=== PATIENT | female | born 1990 | race Caucasian/White ===

== ENCOUNTER 2018-02-26 06:40 | Inpatient (IN) | payer BC ==
[2018-02-26] MEDS ORDERED: Oxytocin 30 UNIT 30 UNITS/500 ML BAG IV ONE (07:18)
[2018-02-26] MEDS ORDERED: OXYTOCIN/0.9 % NS 20 UNIT/1,000 ML BAG IV SCH ×2 (07:30→14:31)
[2018-02-26] MEDS: Lactated Ringer's 1,000 ML IV ONE ×2 (07:30→08:00)
[2018-02-26] MEDS ORDERED: ceFAZolin 2 GM in Sodium Chloride 0.9% 100 ML IVPB ONE (08:01)
[2018-02-26 08:18] LABS: BASO % 0.2 % (0.0-2.0); EOS # 0.1 K/uL (0.0-0.7); EOS % 0.7 % (0.0-4.0); HEMOGLOBIN 12.7 g/dL (12.0-16.0); LYMPH # 2.1 K/uL (1.0-4.3); LYMPH % 25.9 % (20.0-40.0); MEAN CELL VOLUME 93.8 fl (81.0-99.0); MEAN CORPUSCULAR HEMOGLOBIN 31.7 pg (27.0-31.0); MEAN CORPUSCULAR HGB CONC 33.7 g/dL (33.0-37.0); MEAN PLATELET VOLUME 9.7 fl (7.2-11.7); MONO # 0.6 K/uL (0.0-0.8); MONO % 8.2 % (0.0-10.0); NEUT # 5.1 K/uL (1.8-7.0); NRBC % 0.2 % (0.0-0.0); RBC 4.01 Mil/uL (3.80-5.20); RED CELL DISTRIBUTION WIDTH 14.1 % (11.5-14.5); WHITE BLOOD COUNT 7.9 K/uL (4.8-10.8)
[2018-02-26] MEDS ORDERED: ePHEDrine 50 mg/ml Inj ONE (08:43)
[2018-02-26] MEDS ORDERED: EPINEPHrine 1 mg/ml (1:1000) Inj ONE (08:44)
[2018-02-26] MEDS ORDERED: Morphine 1 mg/ml preservative-free Inj(Duramorph) ONE (08:44)
[2018-02-26] MEDS ORDERED: ceFAZolin IV 2 gm in Dextrose 2 GM/50 ML BAG IVPB STA (08:51)
[2018-02-26] MEDS ORDERED: ceFAZolin 2 GM in Sodium Chloride 0.9% 100 ML IVPB SCH (09:45)
[2018-02-26] MEDS ORDERED: Oxycodone/Acetaminophen 5/325 mg Tab PO PRN ×3 (11:41→14:31)
--- NOTE | 2018-02-26 12:19 | OBHP ---
Datetime: 02/26/2018 07:30 IP Adm Impression: Term, intrauterine IP Admit Plan: Admit to unit; Initiate Section protocol Admit Comment, IP Provider: 27 y/o female at 40.4wk GA admitted to LD for primary du e to breech presentation. Patient does not have any medical problems. She denies CXTs, VB, VFL. Patie nt denies CP, SOB, N/V, headache, visual changes. OB: [facility] Pmhx: denies HomeRx: vitamins and iron supplements Famhx: maternal grandmother w/ HTN SurgHx: denies SocialHx: denies toxic habits Allergies: NKDA ROS negative except per HPI Physical Exam: Gen: sitting up comfortably in bed Heart: S1 S2 present, RRR Lungs: normal resp effort, clear to auscultation bilaterally Abd: Gravid, normal BS, soft, non-tender Extremities: no swelling/erythema/tenderness Assessment and Plan: 27 y/o female at 40.4wk GA admitted to LD for primary due to breech presentation GBS+, RPR neg, HBsAg neg, Rubella non-immune, GC/C negative Admit patient to unit [place] and NST monitoring CBC/ Type and screen Rapid HIV LR 1L IV bouls x2 NPO Anesthesiology consulted SCDs for DVT prophylaxis Case discussed w/ attending, Dr. Isauro Boyce, pgyi Patient was seen with the resident I agree with the note Pelvic Type - PN: Not Done Extremities - PN: Normal Abdomen - PN: Normal Back - PN: Not Done Breast - PN: Not Done Lungs - PN: Normal Heart - PN: Normal Thyroid - PN: Not Done Neurologic - PN: Not Done HEENT - PN: Not Done General - PN: Normal Presentation-Admit: Breech Contraction Comments Provider: none Gestation - Est Wks by US: 40.4 IP Hx Assessment: The History has been Reviewed and is Current EGA AdmitDate IP: 39.3 Vital Signs Provider: Reviewed; Within Normal Limits IP Indication for Induction: Not Applicable IP Chief Complaint: Scheduled Section NICHD Decel Fetus A IP Provider: None Genitourinary Exam: Not Done DTRs - PN: Not Done
--- NOTE | 2018-02-26 12:37 | OBDS ---
DELIVERY PERSONNEL Delivery Doctor: Mercy Marie MD Scrub Nurse: Denice Frye Fitness Assistant: Sosa Taylor RN Anesthesiologist: Dr. Boyle MATERNAL INFORMATION Delivery Anesthesia: Spinal Medications in Delivery: ancef 2grams and Pitocin Estimated Blood Loss (ml): 800 EBL Placenta Cultured: No Maternal Complications: None RN Comments: Baby breeched confirmed on ultrasound Provider Comments: Patient was delivered by primary section via low flap transverse incisio n patient tolerated procedure well see operative report LABOR SUMMARY EDC: 03/02/2018 00:00 No. Babies in Womb: 1 Attempted: No Labor Anesthesia: Intrathecal LABOR INFORMATION Reason for Induction: Not Applicable Oxytocin: N/A Group B Beta Strep: Positive Antibiotics # of Doses: Ancef 2 grams Antibiotics Time of Last Dose: 1030a Steroids Given: None Reason Steroids Not Administered: Not Applicable MEMBRANES Membranes Rupture Method: Artificial Rupture of Membranes: 02/26/2018 10:48 Length of Rupture (hrs): 0.02 Amniotic Fluid Color: Clear Amniotic Fluid Amount: Moderate Amniotic Fluid Odor: None STAGES OF LABOR Stage 3 hrs: 0 Stage 3 min: 0 CSECTION DELIVERY Primary Indication: Breech Presentation Secondary Indication: primary c section CSection Urgency: Elective CSection Incidence: Primary Labor: No Labor Elective: Elective CSection Incision: Lower Uterine Transverse BABY A INFORMATION Infant Delivery Date/Time: 02/26/2018 10:49 Method of Delivery: Born in Route : No : N/A Forceps: N/A Vacuum Extraction: N/A Shoulder Dystocia : No SHOULDER DYSTOCIA BABY A Delivery Date/Time: 02/26/2018 10:49 PRESENTATION/POSITION BABY A Presentation: Breech Cephalic Presentation: N/A Breech Presentation: Madan PLACENTA INFORMATION BABY A Placenta Delivery Time : 02/26/2018 10:49 Placenta Method of Delivery: Manual Removal Placenta Status: Delivered SCORES BABY A Heart Rate 1 min: >100 bpm Resp Effort 1 min: Good Cry Reflex Irritability 1 min: Cough or Sneeze or Pulls Away Muscle Tone 1 min: Active Motion Color 1 min: Body Twilight, Extremities Blue Resuscitation Effort 1 min: N/A SCORE 1 MIN: 9 Heart Rate 5 min: >100 bpm Resp Effort 5 min: Good Cry Reflex Irritability 5 min: Cough or Sneeze or Pulls Away Muscle Tone 5 min: Active Motion Color 5 min: Body Twilight, Extremities Blue Resuscitation Effort 5 min: N/A SCORE 5 MIN: 9 INFANT INFORMATION BABY A Gestational Age at Delivery: 39.3 Gestational Status: Term Outcome : Liveborn Condition : Stable Sex: Female IDENTIFICATION/MEDS BABY A ID Band Number: [id number] ID Band Location: Left Leg; Left Arm WEIGHT/LENGTH BABY A Birthweight (gms): 3150 Weight (lb): 6 Weight (oz): 15 CORD INFORMATION BABY A No. Cord Vessels: 3 Nuchal Cord : N/A Cord Blood Taken: Yes Suction: Mouth ASSESSMENT BABY A Complications: None Physical Findings at Delivery: Within Normal Limits Respirations: Appears Normal Thiokol Operator/ALS Called : No Infant Care By: DR Vázquez and Namrata Hebert RN nursery RN Transferred To: Remains with Mother
[2018-02-26] MEDS ORDERED: Simethicone 80 mg Chewtab PO SCH (16:00)
[2018-02-26] MEDS: Simethicone 80 mg Chewtab PO SCH ×2 (16:13→22:07)
[2018-02-27] MEDS: Simethicone 80 mg Chewtab PO SCH ×4 (04:00→22:09)
[2018-02-27 06:03] LABS: HEMOGLOBIN 10.5 g/dL (12.0-16.0); MEAN CELL VOLUME 92.6 fl (81.0-99.0); MEAN CORPUSCULAR HEMOGLOBIN 31.9 pg (27.0-31.0); MEAN CORPUSCULAR HGB CONC 34.4 g/dL (33.0-37.0); RBC 3.3 Mil/uL (3.80-5.20); RED CELL DISTRIBUTION WIDTH 13.8 % (11.5-14.5); WHITE BLOOD COUNT 9.8 K/uL (4.8-10.8)
--- NOTE | 2018-02-27 08:08 | OP ---
PROCEDURE DATE: 02/26/2018 PREOPERATIVE DIAGNOSIS: Breech presentation. POSTOPERATIVE DIAGNOSIS: Breech presentation. OPERATION PERFORMED: Primary low-flat transverse section via Pfannenstiel skin incision. SURGEON: Mary Marie MD BATTERY LOADER: Dr. Negin Lemus. She was helpful in creating exposure, obtaining hemostasis, delivery of the infant, and closure of the patient. The procedure would not have been possible without her assistance. ANESTHESIA: Spinal. ANESTHESIA ADMINISTERED BY: Bharati Harrington MD IV FLUID INTAKE: The patient received 1800 mL of D5 LR intraoperatively. ESTIMATED BLOOD LOSS: 100 mL. URINE OUTPUT: Boles catheter put out approximately 500 mL of clear urine. OPERATIVE FINDINGS: Baby girl, breech presentation, weighing 6 pounds and 15 ounces. Normal uterus, tubes, and ovaries were identified no complications. DESCRIPTION OF PROCEDURE: After informed consent was obtained, the patient was taken to the operating room where she was given spinal anesthesia. She was then prepped and draped in a normal sterile fashion with a leftward tilt. A Pfannenstiel skin incision was then made with a scalpel and carried down to the underlying layer of fascia. The fascia was nicked in the midline. The fascial incision was then extended laterally with a curved De Jesus scissors. The superior aspect of the fascial incision was then grasped with Mary clamps, elevated up, and the rectus muscles were dissected off using both sharp and blunt dissection. Attention was then turned to the inferior aspect of the fascial incision, which in a similar fashion was grasped with Mary clamps, elevated up, and the rectus muscles were dissected off using both sharp and blunt dissection. The rectus muscles were then in the midline. The peritoneum was identified and entered sharply with the Metzenbaum scissors. The peritoneal incision was then extended superiorly and inferiorly until good visualization of the bladder. The bladder blade was then inserted. The vesicouterine peritoneum was identified and entered sharply with the Metzenbaum scissors. The incision was then extended laterally. A bladder flap was created digitally. The bladder blade was then readjusted. A low transverse incision was then made with a scalpel. The uterine incision was then extended laterally with the bandage scissors. The was delivered from breech presentation. The nose and mouth were suctioned with a suction trap. The cord was clamped and cut. The infant was handed off to the awaiting pediatricians. The placenta was then removed manually. The uterus was exteriorized and cleared of all clots and debris. The uterine incision was then repaired with 0 Vicryl in a running locked fashion. The second layer of the same suture was used to obtain excellent hemostasis. The abdomen was then copiously irrigated. The irrigant was removed with the suction device. The uterus was then returned to the abdomen. The gutters were cleared off all clots and debris. The incision was re-examined and noted to be hemostatic. The peritoneum was then closed with 2-0 Vicryl in a running fashion. The muscle was reapproximated with 0 Vicryl in an interrupted fashion. The fascia was closed with 0 Vicryl in a running fashion. The skin was closed with 3-0 on a Rodríguez needle. All sponge, lap, needle, and instrument counts were correct x2, and the patient was taken to the recovery room in awake and stable condition. Mary Marie MD
[2018-02-27] MEDS ORDERED: Multivitamin With Minerals Tab PO SCH (09:00)
[2018-02-27] MEDS: Oxycodone/Acetaminophen 5/325 mg Tab PO PRN ×4 (10:46→23:47)
[2018-02-27] MEDS: Multivitamin With Minerals Tab PO SCH (11:24)
[2018-02-28] MEDS: Oxycodone/Acetaminophen 5/325 mg Tab PO PRN ×2 (04:14→23:57)
[2018-02-28] MEDS: Simethicone 80 mg Chewtab PO SCH ×4 (04:15→23:05)
[2018-02-28] MEDS: Multivitamin With Minerals Tab PO SCH (09:26)
[2018-03-01] MEDS: Simethicone 80 mg Chewtab PO SCH ×2 (03:47→09:13)
[2018-03-01] MEDS ORDERED: Measles, Mumps, and Rubella 0.5 ML VIAL SC ONE (09:00)
[2018-03-01] MEDS: Multivitamin With Minerals Tab PO SCH (09:09)
[2018-03-01] MEDS: Oxycodone/Acetaminophen 5/325 mg Tab PO PRN (09:09)
--- NOTE | 2018-03-01 09:13 | OBPPN ---
Datetime: 03/01/2018 07:01 PP Pain Prov: Within normal limits PP Nausea Prov: Denies PP Flatus Prov: Yes PP BM Prov: No PP Breasts Prov: Not Done PP Heart Prov: Normal PP Lungs Prov: Normal PP Abdomen/Uterus Prov: Normal PP Lochia Prov: Normal PP Vulva/Perineum Prov: Not Done PP CVA Tenderness Prov: Normal PP Extremities Prov: Normal PP C/S Incision Prov: Normal PP Progress Prov: Normal PP Progress Note Prov: 27 y/o , S/P Schedule C- section on 02/25/18 for breech presentation POD3 Patient seen and evaluated at bedside. Reports mild abdominal pain which is well controlled with p ain medications. Boles D/C, dressing removed, Incision site C/D/I. Tolerating regular diet well. Loch ia similar to menses. Reports flatus but no BM. Denies fever, chills, nausea, vomiting, diarrhea, CP, SOB. O: VSS GEN: Patient is comfortable. In no acute distress. Cardio: S1S2, no murmurs, gallops or rubs. Lungs: clear air entry sounds b/l, no wheezing Abdomen: BS+, Minimal tenderness to palpation. Uterus is firm and at the level of the umbilicus. EXT: No edema, calves non-tender to palpation, Zeinab's Negative Assessment/Plan: 27 y/o , S/P Scheduled C- section on 02/25/18 for breech presentation. Pt jacky ins afebrile, tolerating pain with medication, doing well on POD#3. OOB with caution - SCDs for DVT prophylaxis, encouraged ambulating - Percocet 5/325mg, and Motrin 600mg prn for pain. - Senokot and Colace for constipation - Continue to encourage and ambulating - f/u CBC post op: 10.5/30.5 - Continue present management. - Anticipated D/C today, on 03/01/18 --- Jas Valencia MD PGY-1 Attending Note: Patient was discussed with the resident and I agree with the above.
[2018-03-01 18:52] VITALS: BP 124/89; PULSE 75; RESP 20; TEMP 97.9; O2SAT 99
--- NOTE | 2018-03-03 13:48 | OBDCSUM ---
Datetime: 03/01/2018 07:03 Discharged to, Provider: Home Follow up at, Provider: [facility] Disch Instr Activity: Normal activity; May Shower Disch Instr Diet: Regular Discharge Instructions, Provider: Routine instructions given Discharge Diagnosis, Provider: Term Delivered Discharge Time: 03/01/2018 09:12 Follow up in weeks, Provider: 1-2 weeks, 4-6 weeks Disch Referrals: None Contraception discussed, Prov: Yes Disch Activity Restrictions: No exercising; No lifting; No sexual activity; Nothing in vagina - Inte rcourse, tampons, douche Discharge Comment, Provider: Discharge Summary DOA: 02/26/2018 EGA: 40.4 wks Diagnosis: Primary due to Breech Presentation Summary of : 26 y/o s/p Primary due to Breech presentation L_D summary: Patient tolerated surgery well. Pain was well controlled with pain meds. D/c rodarte, d ressing removed, incision site healing well, no exudate seen, dry and intact. No nausea advised to ad bear diet as tolerated. Passing flatus, had BM, voiding well w/o difficulties. Breast feeding withou t difficulty and supplementing with formula. Lochia is similar to menses volume. Reports she has been having regular bowel movements. DOL: 02/26/18 at 22:25 Primary NB: Female : 9 Weight: 3150 g Lochia= menses, mild pain, controlled with medications MMR: 03/01/18 Blood type: O+, Antibody Neg CBC pp: [phone] Discharge Date: 03/01/2018 Time 10:00 AM Discharge Instructions: -Encourage -Encourage ambulation -Percocet/Ibuprofen for pain PRN -COlace BID for constipation -Ambulate as tolerated - ED precautions: If excessive bleeding, pain that does not get relief, fever >100.4, palpitations , SOB, CP or other concerning symptom go to the ED. - PT was urged if feeling sad, mood swing, depression, neglect of baby, suicidal thoughts, homicid al thoughts go to ER or call 911 for help - Pt should go to her Primary care doctor if have difficulty with breast feeding - F/U at [facility] in 1-2 week for wound check and 4-6 week for checkup. -- Jas Valencia MD, PGY-1 Discharge Diagnosis Prov Other: Uncomplicated cesareaan Section. Clinically Stable. Contraception after Delivery: Undecided
--- NOTE | 2018-03-03 13:48 | OBPPN ---
Datetime: 02/28/2018 06:19 PP Pain Prov: Within normal limits PP Nausea Prov: Denies PP Flatus Prov: Yes PP BM Prov: No PP Breasts Prov: Not Done PP Heart Prov: Normal PP Lungs Prov: Normal PP Abdomen/Uterus Prov: Normal PP Lochia Prov: Not Done PP Vulva/Perineum Prov: Not Done PP CVA Tenderness Prov: Normal PP Extremities Prov: Normal PP C/S Incision Prov: Normal PP Progress Prov: Normal PP Impression Prov: Normal progression PP Plan Prov: Continue present management PP Progress Note Prov: Manda Alvarez Progress Note 27 y/o , S/P Schedule C- section on 02/25/18 for breech presentation POD2 Patient seen and evaluated at bedside. Reports abdominal pain which is well controlled with pain m edications. Boles D/C, dressing removed, Incision site C/D/I. Tolerating regular diet well. Lochia si milar to menses. Reports passing flatus but no bowel movement yet. Denies fever, chills, nausea, vomi ting, diarrhea, CP, SOB. O: Vitally stable GEN: Patient is comfortable. In no acute distress. Cardio: S1S2, no murmurs, gallops or rubs. Lungs: clear air entry sounds b/l, no wheezing Abdomen: BS+, tenderness to palpation. Dressing intact. dressing present. Uterus is firm and at th e level of the umbilicus. EXT: No edema, calves non-tender to palpation, Zeinab's Negative Assessment/Plan: 27 y/o , S/P Scheduled C- section on 02/25/18 for breech presentation. Pt jacky ins afebrile, tolerating pain with medication, doing well on POD#2. OOB with caution - SCDs for DVT prophylaxis, encouraged ambulating - Percocet 5/325mg, and Motrin 600mg prn for pain. - Senokot for constipation - Continue to encourage and ambulating - f/u CBC post op: 10.5/30.5 - Continue present management. - Anticipated D/C, on 03/01/18 --- Jas Valencia MD PGY-1. Attending Note: Patient was discussed with the resident and I agree with the above Vital Signs Provider PP: Reviewed; Within Normal Limits
== END 2018-03-01 13:40 | disposition home or self-care (01) | DRG 788 ==
LOC: H.EROB2 06:40 → H.L&D 07:06 → H.OB/GYN 13:15
PROVIDERS: ADMIT Obstetrics & Gynecology Gynecology; ATTEND Obstetrics & Gynecology Gynecology
PROC: 10D00Z1 Extraction of Products of Conception, Low, Open Approach (ICD-10-PCS; principal; 2018-02-26)
PROC: 4A1HXCZ Monitoring of Products of Conception, Cardiac Rate, External Approach (ICD-10-PCS; 2018-02-26)
DX: O32.1XX0 Maternal care for breech presentation, not applicable or unspecified (principal); O99.824 Streptococcus B carrier state complicating childbirth; Z3A.39 39 weeks gestation of pregnancy; Z37.0 Single live birth